=== PATIENT | female | born 1965 | race American Indian/Alaskan Native ===

== ENCOUNTER → 2021-05-27 | Emergency (ER) | payer SELFPAY ==
[2021-05-27 15:27] VITALS: BP 149/102
== END ==
LOC: ED 15:15
DX: R51.9 Headache, unspecified (principal); S11.95XA Open bite of unspecified part of neck, initial encounter; Z53.21 Procedure and treatment not carried out due to patient leaving prior to being seen by health care provider; X58.XXXA Exposure to other specified factors, initial encounter; Y93.89 Activity, other specified; Y92.89 Other specified places as the place of occurrence of the external cause; Y99.8 Other external cause status

== ENCOUNTER 2021-06-12 01:09 | Emergency (ER) | payer SELFPAY ==
[2021-06-12 02:19] VITALS: BP 163/97
[2021-06-12] MEDS ORDERED: ONDANSETRON 4 MG ODT TAB PO ONE (02:43)
[2021-06-12] MEDS ORDERED: oxyCODONE /ACETAMINOPHEN 5-325MG TAB PO ONE (02:43)
[2021-06-12] MEDS ORDERED: AMOXICILLIN/K CLAV 875/125MG TAB PO ONE (02:43)
[2021-06-12] MEDS ORDERED: IBUPROFEN 600 MG TAB PO ONE (02:44)
--- NOTE | 2021-06-12 02:48 | Emergency Department Report ---
ED General Adult HPI - General Chief complaint: Earache Stated complaint: POSS EAR INFECTION BODY PAIN Source: patient Mode of arrival: Ambulatory Limitations: No Limitations - History of Present Illness Initial comments: Patient is a 55-year-old -[place] female with no past medical history presented to the ED with complaint of acute onset persistent severe left ear steven n for the last 1 week. Patient states that the pain has worsened in the last 2 days despite taking pain medication at home. Patient denies dizziness, syncope, hearing loss, nausea and vomiting, chest pain, fever and chills, traumatic injury, headache, sore throat, nasal and sinus congestion or back pain and neck pain. MD Complaint: left ear pain -: Sudden, week(s) (1) Location: face (left ear pain) Radiation: non-radiation Severity scale (0 -10): 8 Quality: aching, sharp Consistency: constant Improves with: none Worsens with: none Associated Symptoms: denies other symptoms. denies: confusion, chest pain, cough, diaphoresis, fever/chills, headaches, malaise, nausea/vomiting, rash, seizure, shortness of breath, syncope, weakness, other Treatments Prior to Arrival: none - Related Data Previous Rx's Medication Instructions Recorded Last Taken Type Amoxicillin/Potassium Clav 1 each PO Q12H #20 tab 06/12/21 Unknown Rx [Augmentin 875-125 Tablet] Ibuprofen [Motrin] 600 mg PO Q8H PRN #30 tablet 06/12/21 Unknown Rx Ofloxacin 0.3% [Floxin 0.3% Otic] 1 drop OT Q12H #5 ml 06/12/21 Unknown Rx traMADoL [Ultram] 50 mg PO Q6HR PRN #12 tablet 06/12/21 Unknown Rx Allergies Allergy/AdvReac Type Severity Reaction Status Date / Time No Known Allergies Allergy Unverified 05/27/21 15:22 ED Review of Systems ROS: Stated complaint: POSS EAR INFECTION BODY PAIN Other details as noted in HPI Constitutional: denies: chills, fever Eyes: denies: eye pain, eye discharge, vision change ENT: ear pain (LEFT EAR PAIN). denies: throat pain Respiratory: denies: cough, shortness of breath, wheezing Cardiovascular: denies: chest pain, palpitations Endocrine: no symptoms reported Gastrointestinal: denies: abdominal pain, nausea, vomiting, diarrhea Genitourinary: denies: urgency, dysuria, discharge Musculoskeletal: denies: back pain, joint swelling, arthralgia Skin: denies: rash, lesions Neurological: denies: headache, weakness, paresthesias Psychiatric: denies: anxiety, depression Hematological/Lymphatic: denies: easy bleeding, easy bruising ED Past Medical Hx - Past Medical History Previous Medical History?: No - Surgical History Past Surgical History?: No - Medications Home Medications: Home Medications Medication Instructions Recorded Confirmed Last Taken Type Amoxicillin/Potassium Clav 1 each PO Q12H #20 tab 06/12/21 Unknown Rx [Augmentin 875-125 Tablet] Ibuprofen [Motrin] 600 mg PO Q8H PRN #30 tablet 06/12/21 Unknown Rx Ofloxacin 0.3% [Floxin 0.3% Otic] 1 drop OT Q12H #5 ml 06/12/21 Unknown Rx traMADoL [Ultram] 50 mg PO Q6HR PRN #12 tablet 06/12/21 Unknown Rx ED Physical Exam - General Limitations: No Limitations General appearance: alert, in no apparent distress - Head Head exam: Present: atraumatic, normocephalic, normal inspection - Eye Eye exam: Present: normal appearance, PERRL, EOMI Pupils: Present: normal accommodation - ENT ENT exam: Present: normal orophraynx, mucous membranes moist, normal external ear exam, other (Erythematous bulging tympanic membrane with effusion) - Neck Neck exam: Present: normal inspection, full ROM, lymphadenopathy - Respiratory Respiratory exam: Present: normal lung sounds bilaterally. Absent: respiratory distress, wheezes, rales, rhonchi, chest wall tenderness, accessory muscle use, decreased breath sounds, prolonged expiratory - Cardiovascular Cardiovascular Exam: Present: normal rhythm, tachycardia, normal heart sounds. Absent: systolic murmur, diastolic murmur, rubs, gallop - GI/Abdominal GI/Abdominal exam: Present: soft, normal bowel sounds. Absent: tenderness, guarding, hyperactive bowel sounds, hypoactive bowel sounds, organomegaly, mass, bruit - Extremities Exam Extremities exam: Present: normal inspection, full ROM, normal capillary refill - Back Exam Back exam: Present: normal inspection, full ROM. Absent: tenderness, CVA tenderness (R), CVA tenderness (L), muscle spasm, paraspinal tenderness, vertebral tenderness - Neurological Exam Neurological exam: Present: alert, oriented X3, CN II-XII intact, normal gait, reflexes normal - Psychiatric Psychiatric exam: Present: normal affect, normal mood - Skin Skin exam: Present: warm, dry, intact, normal color. Absent: rash ED Course Vital Signs 06/12/21 02:06 Temperature 97.8 F Pulse Rate 100 H Respiratory 19 Rate Blood Pressure 163/97 [Right] O2 Sat by Pulse 99 Oximetry ED Medical Decision Making - Medical Decision Making This is a 55-year-old -[place] female with no past medical history presented to the ED with complaint of acute onset persistent severe left ear pain for the last 1 week. Patient states that the pain has worsened in the last 2 days despite taking pain medication at home. In the ED, patient is alert and oriented x3 and is not in any distress. Patient was treated for pain in the ED and based on the history and physical exam findings, the patient was discharged home on pain medication and antibiotics and advised to follow-up with her primary care physician in 7 to 10 days for reevaluation. Patient advised return to the ED immediately if symptoms get worse. Patient was also referred to the ENT physician Dr. Araiza for further evaluation in 7 to 10 days. Patient was advised to contact Dr. Araiza' office to schedule a follow-up appointment. - Differential Diagnosis Otitis media; otitis externa; ruptured tympanic membrane; mastoiditis Critical care attestation.: If time is entered above; I have spent that time in minutes in the direct care of this critically ill patient, excluding procedure time. ED Disposition Clinical Impression: Acute otitis media with effusion of left ear Disposition: HOME / SELF CARE / HOMELESS Is pt being admited?: No Does the pt Need Aspirin: No Condition: Stable Instructions: Otitis Media (ED), Ear Drops, Adult, [id number], Otitis Media, Adult, [id number] Additional Instructions: Take medication with food, drink plenty of fluids and follow-up with your primary care physician in 7 to 10 days for reevaluation. Return to the ED immediately if symptoms get worse. Prescriptions: Amoxicillin/Potassium Clav [Augmentin 875-125 Tablet] 1 each PO Q12H #20 tab Ofloxacin 0.3% [Floxin 0.3% Otic] 1 drop OT Q12H #5 ml Ibuprofen [Motrin] 600 mg PO Q8H PRN #30 tablet PRN Reason: Pain traMADoL [Ultram] 50 mg PO Q6HR PRN #12 tablet PRN Reason: Pain Referrals: [facility] [Provider Group] - 7-10 days SARAI ARAIZA MD [Staff Physician] - 7-10 days Time of Disposition: 02:49 Print Language: URDU
== END 2021-06-12 04:00 | disposition home or self-care (01) ==
LOC: ED 01:09
DX: H65.192 Other acute nonsuppurative otitis media, left ear (principal)
CPT/HCPCS: 99282; J3490; Q0162